=== PATIENT | male | born 1990 | race Two or more races ===

== ENCOUNTER → 2023-10-04 | Outpatient (REF) | payer BC | LOC: M LAB REF 17:49 | PROVIDERS: ATTEND Internal Medicine | DX: E03.9 Hypothyroidism, unspecified (principal) ==

== ENCOUNTER → 2024-11-29 | Outpatient (REF) | payer BC ==
[2024-11-29 13:49] LABS: FERRITIN 9.7 NG/ML (7.3-270.7)
[2024-11-29 13:58] LABS: PERCENT SATURATION 39.4 % (13.2-45.0)
== END ==
LOC: M LAB REF 12:58
PROVIDERS: ATTEND Internal Medicine
DX: R53.83 Other fatigue (principal); R06.00 Dyspnea, unspecified

== ENCOUNTER → 2025-03-21 | Outpatient (REF) | payer BC ==
[2025-03-21 18:50] LABS: IRON (FE) 91.0 UG/DL (50-170); PERCENT SATURATION 34.6 % (13.2-45.0)
[2025-03-21 18:52] LABS: TOTAL T3 99.9 NG/DL (60.0-181.0)
== END ==
LOC: M LAB REF 17:31
PROVIDERS: ATTEND Internal Medicine
DX: E03.9 Hypothyroidism, unspecified (principal); E61.1 Iron deficiency; R53.83 Other fatigue; E06.3 Autoimmune thyroiditis

== ENCOUNTER → 2025-06-06 | Outpatient (REF) | payer BC ==
[2025-06-06 18:41] LABS: IRON (FE) 53.0 UG/DL (50-170); PERCENT SATURATION 20.0 % (13.2-45.0)
== END ==
LOC: M LAB REF 17:50
PROVIDERS: ATTEND Internal Medicine
DX: E61.1 Iron deficiency (principal)